=== PATIENT | male | born 2000 ===

== ENCOUNTER 2018-01-06 11:43 | Day surgery (SDC) | payer OTHER ==
[~2018-01-06 11:43] MED LIST: Dexamethasone IV* 4 MG/ML 1 ML (4 MG) ONE; Famotidine IV* 10 MG/ML 2 ML (20 mg) ONE; Lidocaine 1% INJ* 10 MG/ML 30 ML SDV ONE
[2018-01-06] MEDS ORDERED: Midazolam* 1 MG/ML 2 ML VIAL (2 MG) ONE (11:53)
[2018-01-06] MEDS ORDERED: fentaNYL* 50 MCG/ML 2 ML VIAL (100 MCG VIAL) ONE (11:53)
[2018-01-06] MEDS ORDERED: Propofol* 10 MG/ML 20 ML BTL IV PUSH ONE (12:27)
[2018-01-06] MEDS ORDERED: ceFAZolin 2 GM in NS PREMIX(*) 2 GM/100 ML BAG IVPB ONE (12:47)
[2018-01-06] MEDS ORDERED: Naloxone* 0.4 MG/ML 1 ML VIAL IV PRN (13:08)
[2018-01-06 14:09] VITALS: BP 104/65
[2018-01-06] MEDS ORDERED: HYDROcodone/ACETAMIN 5-325 MG* 1 TAB ONE (14:11)
--- NOTE | 2018-01-07 04:04 | OP ---
DATE OF OPERATION: 01/06/18 - [facility] DATE OF : 89 SURGEON: Mary Crisostomo MD INFORMATICS EDUCATOR: CHARISSA Delgado ANESTHESIA: Local MAC. PRE-OP DIAGNOSIS: Fracture or dislocation of bony mallet finger of the right ring finger. POST-OP DIAGNOSIS: Fracture or dislocation of bony mallet finger of the right ring finger. OPERATIVE PROCEDURE: Closed reduction and pinning of right ring finger DIP joint. ESTIMATED BLOOD LOSS: Zero. Tourniquet was not used during the procedure. INDICATIONS FOR PROCEDURE: Anthony is an 17-year-old male who injured his right ring finger playing flag football. Attempted closed reduction under digital block anesthetic was unsuccessful and the joint was very unstable. He presents for closed reduction, possible open reduction, and pinning. DESCRIPTION OF PROCEDURE: The patient was brought to the operating room, was given a sedation anesthetic and a digital block with 10 cc of % plain lidocaine. The skin of his right hand and forearm was prepped and draped in the usual sterile fashion. The fracture fragments were manipulated under the C- arm until they were reducible and then a dorsal blocking pin was placed from dorsally into the middle phalanx with the DIP joint flexed. The DIP joint was then brought into extension, with this dislocated distal phalanx reduced and a second K-wire was driven from distal to proximal across the DIP joint holding the distal phalanx in concentric reduction. The position of the K-wires and fracture fragments were checked on the C-arm in the AP and lateral views and found to be satisfactory. The pins were bent and cut and then dressed with Xeroform, 4x4, Webril, and an AlumaFoam splint. The patient tolerated the procedure well and was brought to the recovery room in good condition. [id number] #: [id number] MTDD
--- NOTE | 2018-01-07 16:39 | RAD ---
INDICATION: Intraoperative fluoroscopy RIGHT fourth finger. Technique: 2.02 seconds of?fluoroscopy?was provided?for the physician proceduralist. REPORT: Comminuted intra-articular fracture at the dorsal base of the distal phalanx. Spot images document placement of percutaneous fixation wires across the distal interphalangeal joint. IMPRESSION: Procedural control films. CPT II Codes: G9500
[2018-01-08] MEDS ORDERED: Dexamethasone IV* 4 MG/ML 1 ML (4 MG) IV SLOW PU ONE (06:00)
[2018-01-08] MEDS ORDERED: Famotidine IV* 10 MG/ML 2 ML (20 mg) IV ONE (06:00)
[2018-01-08] MEDS ORDERED: Buffered Lidocaine 0.9% SYRIN* 5 ML/SYR SYRINGE INTRADERM ONE (06:00)
== END 2018-01-06 14:36 | disposition home or self-care (01) ==
LOC: OREAST 11:43
PROVIDERS: ATTEND Orthopaedic Surgery
DX: S62.634A Displaced fracture of distal phalanx of right ring finger, initial encounter for closed fracture (principal); S63.294A Dislocation of distal interphalangeal joint of right ring finger, initial encounter; F41.9 Anxiety disorder, unspecified; W23.0XXA Caught, crushed, jammed, or pinched between moving objects, initial encounter; Y93.62 Activity, american flag or touch football; Y92.321 Football field as the place of occurrence of the external cause
CPT/HCPCS: 76000; C1776; J0690; J1100; J2250; J2704; J3010